=== PATIENT | male | born 1985 | race African-American/Black ===

== ENCOUNTER 2018-10-02 12:53 | Emergency (ER) | payer OTHER ==
[2018-10-02 13:06] VITALS: BP 130/87; PULSE 87; TEMP 97.8; BMI 32.0
[2018-10-02] MEDS ORDERED: SODIUM CHLORIDE 1,000 ML IV STA ×2 (13:26→16:07)
--- NOTE | 2018-10-02 13:58 | PDOC ---
History of Present Illness - General Chief Complaint: Blood Sugar Problem Stated Complaint: PATIENT HERE FOR HIGH FINGER STICK OF 400 Time Seen by Provider: 10/02/18 13:24 - History of Present Illness Initial Comments: 10/02/18 14:58 33M with pmh of DM2, diabetic neuropathy s/p toe amputation, who was BIBA to the emergency department for evaluation of high blood sugar of 378 with associated dizziness. Patient states he has been taking his medication normally (Metformin BID and Glipizide in the morning) Usual average blood sugar is usually 120-135 Patient reports eating a slice of strawberry shortcake last night. Patient reports that his blood sugar used to be in the 400s but has managed it and started eating better after his toe amputation. The patient denies chest pain, shortness of breath, headache. Denies fever, chills, nausea, vomit, diarrhea and constipation. Denies dysuria, frequency, urgency and hematuria. Allergies: NDKA Past surgical history: toe amputation Social history: None reported PCP: Jennifer Past History - Past Medical History Allergies/Adverse Reactions: Allergies Allergy/AdvReac Type Severity Reaction Status Date / Time venom-honey bee Allergy Verified 10/02/18 13:06 [bee venom (honey bee)] Home Medications: Ambulatory Orders Sitagliptin Phos/Metformin HCl [Janumet Xr 100-1,000 mg Tablet] 1 tab PO BID COPD: No Diabetes: Yes HTN: Yes - Suicide/Smoking/Psychosocial Hx Smoking History: Current every day smoker Have you smoked in the past 12 months: No Information on smoking cessation initiated: No Hx Alcohol Use: No Drug/Substance Use Hx: No Review of Systems - Review of Systems Able to Perform ROS?: Yes Constitutional: Yes: Malaise HEENTM: No: Symptoms Reported Respiratory: No: Symptoms reported Cardiac (ROS): No: Symptoms Reported ABD/GI: No: Symptoms Reported : No: Symptoms Reported Integumentary: No: Symptoms Reported Neurological: No: Symptoms reported Endocrine: No: Symptoms Reported All Other Systems: Reviewed and Negative *Physical Exam - Vital Signs Last Vital Signs Temp Pulse Resp BP Pulse Ox 97.8 F 87 16 130/87 100 10/02/18 13:03 10/02/18 13:03 10/02/18 13:03 10/02/18 13:03 10/02/18 13:03 - Physical Exam General Appearance: Yes: Nourished, Appropriately Dressed, Apparent Distress, Mild Distress HEENT: positive: EOMI, OLE, Normal ENT Inspection Respiratory/Chest: positive: Lungs Clear, Normal Breath Sounds. negative: Chest Tender, Respiratory Distress Cardiovascular: positive: Regular Rhythm, Regular Rate, S1, S2 Gastrointestinal/Abdominal: positive: Normal Bowel Sounds, Soft. negative: Tender Musculoskeletal: positive: Normal Inspection. negative: CVA Tenderness Extremity: positive: Normal Capillary Refill, Normal Inspection Integumentary: positive: Normal Color, Dry, Warm Neurologic: positive: Fully Oriented, Alert, Normal Mood/Affect, Normal Response ED Treatment Course - LABORATORY CBC & Chemistry Diagram: 10/02/18 14:40 10/02/18 14:40 Medical Decision Making - Medical Decision Making 10/02/18 15:06 Hyperglycemia vs DKA vs dehydration vs CAD Likely to be hyperglycemia due to dietary indiscretion and FS tested by patient. Will confirm blood sugar and provider hydration. Will rule out ACS with ekg and trops. 10/02/18 16:08 EKG: Inverted T-wave on V3,V4. Trops negative. Will consult cardiology upon discharge. Blood sugar 412. Second liter then reassess FS 10/02/18 17:53 Second blood sugar 250. Ok to discharge with follow up cardiology and PCP *DC/Admit/Observation/Transfer Diagnosis at time of Disposition: Hyperglycemia - Discharge Dispostion Disposition: HOME Decision to Admit order: No - Referrals Referrals: Janes Cardoza MD [Primary Care Provider] - Demetrius Tay MD [Staff Physician] - - Patient Instructions Printed Discharge Instructions: DI for Hyperglycemia -- Adult Additional Instructions: Follow up with drupal php developer Dr. Tay for your EKG changes and with your primary care doctor Dr. Cardoza for better glucose control. Come back to the emergency department for any new, worsening or concerning symptom. - Post Discharge Activity
[2018-10-02 15:14] LABS: BASO % 0.6 % (0-2.0); EOS % 0.6 % (0-4.5); HEMATOCRIT 44.7 % (35.4-49); HEMOGLOBIN 14.8 GM/dL (11.7-16.9); LYMPH % 16.3 % (8-40); MCH 28.7 pg (25.7-33.7); MEAN PLT VOLUME 8.4 fl (7.5-11.1); MONO % 3.5 % (3.8-10.2); PLATELET COUNT 298 K/MM3 (134-434); RBC 5.14 M/mm3 (4.00-5.60); RDW 13.3 % (11.9-15.9); WHITE BLOOD COUNT 7.5 K/mm3 (4.0-10.0)
--- NOTE | 2018-10-02 15:20 | PDOC ---
Documentation entered by Mariya Fernández SCRIBE, acting as scribe for Phillip Swift MD. Attending Attestation - Resident Resident Name: Spencer Bae - ED Attending Attestation I have performed the following: I have examined & evaluated the patient, The case was reviewed & discussed with the resident, I agree w/resident's findings & plan, Exceptions are as noted - HPI HPI: 10/02/18 13:59 The patient is a 33 year old male, with a significant PMH of IDDM type 2 with toe amputation, who was BIBA to the emergency department for evaluation of high blood sugar of 378. Patient states he has been taking his medication normally and has not missed a dose. He takes metformin morning/night and glipizide in the morning. He notes his normal blood sugar is in the 120-150 range. Pt admits to eating a piece of cake last night. He otherwise adheres to a very strict low- carb diet. Pt endorses some nausea without vomiting, as well as lightheadedness. The patient denies chest pain, shortness of breath, headache. Denies fever, chills, vomit, diarrhea and constipation. Denies dysuria, frequency, urgency and hematuria. Allergies: NDKA Past surgical history: toe amputation Social history: None reported PCP: Jennifer 10/02/18 15:04 - Physicial Exam PE: 10/02/18 15:05 "GENERAL: Awake, alert, and fully oriented, in no acute distress. HEAD: No signs of trauma EYES: PERRLA, EOMI, sclera anicteric, conjunctiva clear ENT: Auricles normal inspection, hearing grossly normal, nares patent, oropharynx clear without exudates. Moist mucosa NECK: Nontender, no stepoffs, Normal ROM, supple, no lymphadenopathy, JVD, or masses LUNGS: Breath sounds equal, clear to auscultation bilaterally. No wheezes, and no crackles HEART: Regular rate and rhythm, normal S1 and S2, no murmurs, rubs or gallops ABDOMEN: Soft, nontender, normoactive bowel sounds. No guarding, no rebound. No masses EXTREMITIES: Normal range of motion, no edema. No clubbing or cyanosis. No cords, erythema, or tenderness NEUROLOGICAL: Cranial nerves II through XII intact. 5/5 strength and sensation in all extremities, Normal speech, normal gait, normal cerebellar function SKIN: Warm, Dry, normal turgor, no rashes or lesions noted. - Medical Decision Making 10/02/18 15:05 33 M with elevated blood sugar, likely 2/2 dietary indiscretion. Will r/o DKA or other metabolic derangement. - Labs, VBG, ketones - IVF 10/02/18 17:23 Labs notable for glucose ~400, otherwise wnl. AG 8. 2L NS given Will recheck fingerstick. 10/02/18 17:52 Fingerstick 258 Pt not in DKA. No significant metabolic abnormality. Pt instructed to f/u with his PMD for further glucose control Pt's EKG with TWIs in anterior leads. Pt without chest pain, trop negative. Will give cards f/u. Pt is well appearing, with normal vitals. Clinically stable for DC at this time. I discussed the physical exam findings, ancillary test results and final diagnoses with the patient. I answered all of the patient's questions. The patient was satisfied with the care received and felt comfortable with the discharge plan and treatment plan. The patient agrees to follow up with the primary care physician within 24-72 hours. Phillip Swift MD: This documentation has been prepared by the Pradeep mack Sammi, SCRIBE, under my direction and personally reviewed by me in its entirety. I confirm that the documentation accurately reflects all work, treatment, procedures, and medical decision making performed by me.
[2018-10-02 15:24] LABS: INR 0.82 (0.83-1.09); PROTHROMBIN TIME (PATIENT) 9.6 SEC (9.7-13.0)
[2018-10-02 15:27] LABS: ACTIVATED PTT 39.4 SECONDS (25.2-36.5)
[2018-10-02 15:54] LABS: ALK PHOS 67 U/L (45-117); ANION GAP 8 MMOL/L (8-16); BILIRUBIN,TOTAL 0.5 mg/dL (0.2-1); BLOOD UREA NITROGEN 7 mg/dL (7-18); CALCIUM 8.8 mg/dL (8.5-10.1); CHLORIDE 97 mmol/L (98-107); CO2 26 mmol/L (21-32); CREATININE 1.2 mg/dL (0.55-1.3); POTASSIUM 3.9 mmol/L (3.5-5.1); SGOT/AST 15 U/L (15-37); SGPT/ALT 32 U/L (13-61); SODIUM 131 mmol/L (136-145); TOT PROT 8.4 g/dl (6.4-8.2)
[2018-10-02 16:05] LABS: GLUCOSE,RANDOM 412 mg/dL (74-106)
[2018-10-02 17:08] LABS: URINE APPEARANCE CLEAR; URINE BILIRUBIN NEGATIVE (NEGATIVE); URINE COLOR YELLOW; URINE GLUCOSE (UA) 3+ (NEGATIVE); URINE KETONE NEGATIVE (NEGATIVE); URINE LEUK ESTERASE NEGATIVE (NEGATIVE); URINE NITRITE NEGATIVE (NEGATIVE); URINE PROTEIN NEGATIVE (NEGATIVE)
[2018-10-02 17:44] LABS: ACETONE SERUM NEGATIVE (NEGATIVE)
--- NOTE | 2018-10-04 15:25 | EKG ---
Test Reason : Blood Pressure : / mmHG Vent. Rate : 074 BPM Atrial Rate : 074 BPM P-R Int : 156 ms QRS Dur : 116 ms QT Int : 384 ms P-R-T Axes : 061 033 042 degrees QTc Int : 426 ms NORMAL SINUS RHYTHM T WAVE ABNORMALITY, CONSIDER ANTERIOR ISCHEMIA ABNORMAL ECG NO PREVIOUS ECGS AVAILABLE Confirmed by DEXTER METCALF MD ([id number]) on 10/04/2018 3:25:37 PM Referred By: Confirmed By:DEXTER METCALF MD
== END 2018-10-02 18:16 | disposition home or self-care (01) ==
LOC: JER 12:53
PROC: 3E0337Z Introduction of Electrolytic and Water Balance Substance into Peripheral Vein, Percutaneous Approach (ICD-10-PCS; principal; 2018-10-02)
DX: E11.65 Type 2 diabetes mellitus with hyperglycemia (principal); E11.42 Type 2 diabetes mellitus with diabetic polyneuropathy; Z79.84 Long term (current) use of oral hypoglycemic drugs; I10 Essential (primary) hypertension; Z89.429 Acquired absence of other toe(s), unspecified side
CPT/HCPCS: 36415; 80053; 81003; 82009; 82962; 84484; 85025; 85610; 85730; 87086; 93005; 93010; 99285-25; J7030

== ENCOUNTER 2019-02-22 08:52 | Emergency (ER) | payer OTHER ==
[2019-02-22 08:58] VITALS: BP 125/91; PULSE 89; TEMP 98; BMI 35.5
[2019-02-22] MEDS ORDERED: predniSONE 20 MG TABLET (UD) PO ONE (09:06)
[2019-02-22] MEDS ORDERED: predniSONE 20 MG TABLET (UD) ONE (09:20)
--- NOTE | 2019-02-22 09:30 | PDOC ---
History of Present Illness - General Chief Complaint: Bite Stated Complaint: BEE BITE Time Seen by Provider: 02/22/19 08:58 - History of Present Illness Initial Comments: 02/22/19 09:17 CHIEF COMPLAINT: bee sting HISTORY OF PRESENT ILLNESS: 33 yo M with no PMH [facility] s/p bee sting. Patient states he has "always been allergic to bees" but has never had an anaphylactic reaction. He reports that he was given an ice pack at his job where he got stung "so the swelling has gone down a lot, but I do feel a tickle in my throat." Patient is speaking in full sentences without any respiratory distress, denies difficulty breathing. No recent travel or sick contacts. PAST MEDICAL HISTORY: Denies past medical history FAMILY HISTORY: Denies SOCIAL HISTORY: Denies tobacco, alcohol, illicit drug use. SURGICAL HISTORY: Denies ALLERGIES: No known drug allergies REVIEW OF SYSTEMS General/Constitutional: Denies fever or chills. Denies weakness, weight change. HEENT: "tickle to my throat." Denies change in vision. Denies ear pain or discharge. Cardiovascular: Denies chest pain or shortness of breath. Respiratory: Denies cough, wheezing, or hemoptysis. Gastrointestinal: Denies nausea, vomiting, diarrhea or constipation. Denies rectal bleeding. Genitourinary: Denies dysuria, frequency, or change in urination. Musculoskeletal: Denies joint or muscle swelling or pain. Denies neck or back pain. Skin: bee sting to right hand. Neurologic: Denies headache, vertigo, loss of consciousness, or loss of sensation. PHYSICAL EXAM General Appearance: Well-appearing, appropriately dressed. No apparent distress , no intoxication. HEENT: EOMI, PERRLA, normal ENT inspection, normal voice, TMs normal, pharynx normal. No conjunctival pallor. No photophobia, scleral icterus. Neck: Supple. Trachea midline. No tenderness, rigidity, carotid bruit, stridor , lymphadenopathy, or thyromegaly. Respiratory/Chest: Lungs CTAB. No shortness of breath, chest tenderness, respiratory distress, accessory muscle use. No crackles, rales, rhonchi, stridor , wheezing, dullness Cardiovascular: RRR. S1, S2. No JVD, murmur, bradycardia, tachycardia. Vascular Pulses: Dorsalis-Pedis (R): 2+, Dorsalis-Pedis (L): 2+ Gastrointestinal/Abdominal: Normal bowel sounds. Abdomen soft, non-distended. No tenderness or rebound tenderness. No organomegaly, pulsatile mass, guarding , hernia, hepatomegaly, splenomegaly. Lymphatic: No adenopathy, tenderness. Musculoskeletal/Extremities: Normal inspection. FROM of all extremities, normal capillary refill. Pelvis Stable. No CVA tenderness. No tenderness to extremities, pedal edema, swelling, erythema or deformity. Integumentary: Two mildly erythematous papules approximately 0.75cm in diameter each. No stinger visualized. No surrounding abscess or cellulitis. Appropriate color, dry, warm. 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 Fully oriented, alert. Appropriate mood/affect. Motor strength 5/5. No appreciable EOM palsy, facial droop or sensory deficit. 02/22/19 09:35 Past History - Past Medical History Allergies/Adverse Reactions: Allergies Allergy/AdvReac Type Severity Reaction Status Date / Time venom-honey bee Allergy Verified 02/22/19 08:58 [bee venom (honey bee)] Home Medications: Ambulatory Orders Sitagliptin Phos/Metformin HCl [Janumet Xr 100-1,000 mg Tablet] 1 tab PO BID EPINEPHrine (EPI-PEN 0.3MG) [Epipen 0.3MG -] 0.3 mg IM ASDIR #2 pens 02/22/19 Prednisone [Deltasone] 40 mg PO DAILY #4 tablet 02/22/19 COPD: No Diabetes: Yes HTN: Yes - Suicide/Smoking/Psychosocial Hx Smoking History: Never smoked Have you smoked in the past 12 months: No Information on smoking cessation initiated: No Hx Alcohol Use: No Drug/Substance Use Hx: No *Physical Exam - Vital Signs Last Vital Signs Temp Pulse Resp BP Pulse Ox 98 F 89 18 125/91 99 02/22/19 08:56 02/22/19 08:56 02/22/19 08:56 02/22/19 08:56 02/22/19 08:56 Medical Decision Making - Medical Decision Making 02/22/19 09:38 33 yo M with no PMH [facility] s/p bee sting. Patient declines pain medication. -60 mg prednisone rx for epi pen provided Advised patient to take medication as prescribed and follow up with dermatology as needed. Advised patient of signs and symptoms for return to ED. Patient verbalized understanding and agrees to plan. *DC/Admit/Observation/Transfer Diagnosis at time of Disposition: Bee sting reaction Qualifiers: Encounter type: initial encounter Injury intent: accidental or unintentional Qualified Code(s): T63.441A - Toxic effect of venom of bees, accidental ( unintentional), initial encounter - Discharge Dispostion Disposition: HOME Condition at time of disposition: Stable Decision to Admit order: No - Prescriptions Prescriptions: EPINEPHrine (EPI-PEN 0.3MG) [Epipen 0.3MG -] 0.3 mg IM ASDIR #2 pens Prednisone [Deltasone] 40 mg PO DAILY #4 tablet - Referrals Referrals: Magdy Moreira MD [Primary Care Provider] - Carol Manley MD [Staff Physician] - - Patient Instructions Printed Discharge Instructions: DI for Insect Bites and Stings Additional Instructions: If you develop any swelling to your lips, tongue, throat, mouth, neck, or you develop any difficulty breathing, please return to the ER immediately. Follow up with dermatology as needed. - Post Discharge Activity
== END 2019-02-22 09:51 | disposition home or self-care (01) ==
LOC: JERFT 08:52
DX: T63.441A Toxic effect of venom of bees, accidental (unintentional), initial encounter (principal); L53.0 Toxic erythema; Y92.118 Other place in children's home and orphanage as the place of occurrence of the external cause; Y99.0 Civilian activity done for income or pay
CPT/HCPCS: 99281-25